=== PATIENT | female | born 1985 | race Caucasian/White ===

== ENCOUNTER 2021-06-18 05:45 | Observation (INO) | payer BC ==
[2021-06-16 09:56] VITALS: BMI 32.4
[2021-06-18] MEDS ORDERED: Ondansetron PF 4 MG/2 ML Vial ONE (06:35)
[2021-06-18] MEDS ORDERED: Rocuronium Bromide 10 MG/ML (10ML VIAL) ONE (06:35)
[2021-06-18] MEDS ORDERED: Dexamethasone 20 MG/5 ML VIAL ONE (06:35)
[2021-06-18] MEDS ORDERED: Fentanyl 100 MCG/2 ML VIAL ONE ×2 (06:35→09:07)
[2021-06-18] MEDS ORDERED: Glycopyrrolate 0.2 MG/ML 5 ML SYRINGE ONE (06:35)
[2021-06-18] MEDS ORDERED: PROPOFOL 20 ML ONE (06:35)
[2021-06-18] MEDS ORDERED: Lidocaine 1% PF 5 ML VIAL ONE (06:35)
[2021-06-18] MEDS ORDERED: HYDROmorphone 0.5 MG/0.5 ML SYRINGE ONE (06:44)
[2021-06-18] MEDS ORDERED: Lidocaine 1% MPF 2 ML VIAL ONE (06:45)
[2021-06-18] MEDS ORDERED: Midazolam HCl 2 mg/2 ml Vial ONE (06:57)
[2021-06-18] MEDS ORDERED: CEFAZOLIN 1 GM VIAL ONE (07:17)
[2021-06-18] MEDS ORDERED: ePHEDrine Sulfate 50 MG/10 ML VIAL ONE (07:44)
[2021-06-18] MEDS ORDERED: PHENYLEPHRINE-NS 100 MCG/ML 10 ML SYRINGE ONE (07:53)
[2021-06-18] MEDS ORDERED: Bisacodyl 10 MG SUPP PR PRN (08:38)
[2021-06-18] MEDS ORDERED: diphenhydrAMINE 25 MG CAP PO PRN (08:38)
[2021-06-18] MEDS ORDERED: Ondansetron PF 4 MG/2 ML Vial IVP PRN (08:38)
[2021-06-18] MEDS: Sodium Chloride 0.9% 1,000 ML IV SCH ×2 (10:35→15:19)
[2021-06-18] MEDS: Simethicone Chewable 80 MG TAB PO PRN ×2 (11:32→22:02)
[2021-06-18] MEDS: Lisinopril 10 MG TAB PO SCH (11:33)
[2021-06-18] MEDS: Ibuprofen 800 MG TAB PO SCH ×2 (14:51→22:02)
[2021-06-19] MEDS: Ibuprofen 800 MG TAB PO SCH (05:40)
[2021-06-19 06:18] LABS: Hemoglobin 12.8 g/dL (12.0-15.5); Mean Corpuscular HGB CONC 33.8 g/dL (32.0-36.0); Mean Corpuscular Hemoglobin 31.3 pg (27.0-33.0); Mean Corpuscular Volume 92.7 fl (81.6-98.3); Mean Platelet Volume 9.3 fl (7.4-10.4); Platelet Count 287 10x3/uL (150-450); RBC Distribution Width 11.9 % (11.5-14.5); Red Blood Cell (RBC) Count 4.09 10x6/uL (3.90-5.03); White Blood Cell (WBC) Count 16.9 10x3/uL (3.5-10.5)
[2021-06-19] MEDS: Sodium Chloride 0.9% 1,000 ML IV SCH ×2 (06:56→09:55)
[2021-06-19 07:37] VITALS: TEMP 97.8
[2021-06-19] MEDS: traMADol HCl 50 MG TAB PO PRN ×2 (08:39→10:29)
[2021-06-19] MEDS: Lisinopril 10 MG TAB PO SCH (08:40)
[2021-06-19 08:41] VITALS: BP 138/82
[2021-06-19] MEDS ORDERED: traMADol HCl 50 MG TAB PO SCH (11:00)
== END 2021-06-19 11:15 | disposition home or self-care (01) ==
LOC: CSHSDC 05:45 → INTOOBSV 10:17 → CSHPED 10:17
PROVIDERS: ADMIT Obstetrics & Gynecology; ATTEND Obstetrics & Gynecology
PROC: 0UT90ZZ Resection of Uterus, Open Approach (ICD-10-PCS; principal; 2021-06-19)
PROC: 0UT20ZZ Resection of Bilateral Ovaries, Open Approach (ICD-10-PCS; 2021-06-19)
PROC: 0UT70ZZ Resection of Bilateral Fallopian Tubes, Open Approach (ICD-10-PCS; 2021-06-19)
DX: N80.0 Endometriosis of uterus (principal); N80.1 Endometriosis of ovary; N80.3 Endometriosis of pelvic peritoneum; N83.12 Corpus luteum cyst of left ovary; N87.9 Dysplasia of cervix uteri, unspecified; N73.6 Female pelvic peritoneal adhesions (postinfective); G89.29 Other chronic pain; R10.2 Pelvic and perineal pain; F17.210 Nicotine dependence, cigarettes, uncomplicated; E11.9 Type 2 diabetes mellitus without complications; I10 Essential (primary) hypertension; D25.9 Leiomyoma of uterus, unspecified; E66.9 Obesity, unspecified; Z68.32 Body mass index [BMI] 32.0-32.9, adult; Z79.84 Long term (current) use of oral hypoglycemic drugs; Z79.899 Other long term (current) drug therapy; Z88.2 Allergy status to sulfonamides
CPT/HCPCS: 85027; 88307; G0378; J0690; J1100; J1170; J2250; J2405; J2704; J3010